=== PATIENT | female | born 1965 | race Caucasian/White ===

== ENCOUNTER 2019-04-13 01:54 | Emergency (ER) | payer SELFPAY ==
[~2019-04-13] VITALS: Ht 167.6 cm; Wt 55.0 kg
[2019-04-13 01:57] VITALS: Ht 167.6 cm; Wt 55.0 kg
[2019-04-13] MEDS ORDERED: SOD CHLORIDE 0.9% 1,000 ML IV STA (01:57)
[2019-04-13] MEDS ORDERED: HALOPERIDOL 5 MG INJ IM STA (01:57)
[2019-04-13] MEDS ORDERED: DIPHENHYDRAMINE 50 MG INJ IM ONE (02:00)
[2019-04-13] MEDS ORDERED: LORAZEPAM 2 MG INJ IM ONE (02:00)
--- NOTE | 2019-04-13 04:32 | ERD ---
ER Documentation Chief Complaint Chief Complaint bib ra /pd from street for drug use HPI This a 54-year-old female who presents from EMS and police escort after she was found outside yelling. Patient is found sitting in bed handcuffed to the bed yelling "gone, gone, gone, gone, gone, gone". Remainder of HPI is extremely limited. The patient is agitated, aggressive and a danger to herself and others. ROS Limited as documented above Medications Home Meds Unable to Obtain Active Prescriptions or Reported Meds Allergies Allergies: Coded Allergies: No Known Allergy (Unverified , 04/13/19) PMhx/Soc Hx Substance Use: No (unable to assess) Hx Tobacco Use: No (unable to assess) Smoking Status: Unknown if ever smoked Physical Exam Vitals Vital Signs Date Temp Pulse Resp B/P (MAP) Pulse Ox O2 O2 Flow FiO2 Time Delivery Rate 04/13/19 74 22 98/64 (75) 98 Room Air 06:01 04/13/19 91 20 95/63 (74) 99 Room Air 04:45 04/13/19 98.2 83 16 97/65 (76) 100 03:15 04/13/19 98.1 80 16 94/63 (73) 100 03:00 04/13/19 98.0 98 16 130/62 100 02:45 (84) 04/13/19 98.3 109 16 111/75 100 02:30 (87) 04/13/19 98.1 110 16 110/70 100 02:15 (83) 04/13/19 98.8 106 19 109/65 100 01:57 (80) Physical Exam General: Disheveled, yelling and screaming Head: Normocephalic, atraumatic. Eyes: Pupils equally reactive, EOM intact ENT: Moist mucous membranes Neck: Supple, no lymphadenopathy Respiratory: Lungs clear bilaterally, no distress Cardiovascular: Tachycardia, no murmurs, rubs, or gallops Abdominal: Soft, non-tender, non-distended, no peritoneal signs : Deferred MSK: No edema, no unilateral swelling, 5/5 strength Neurologic: Agitated, limited exam Skin: No rash Psych: Extreme agitation Result Diagram: 04/13/19 0436 04/13/19 0436 Results 24 hrs Laboratory Tests Test 04/13/19 04:36 White Blood Count 7.4 10^3/ul Red Blood Count 4.13 10^6/ul Hemoglobin 12.0 g/dl Hematocrit 36.6 % Mean Corpuscular Volume 88.6 fl Mean Corpuscular Hemoglobin 29.1 pg Mean Corpuscular Hemoglobin Concent 32.8 g/dl Red Cell Distribution Width 15.0 % Platelet Count 339 10^3/UL Mean Platelet Volume 8.7 fl Immature Granulocytes % 0.300 % Neutrophils % 71.8 % Lymphocytes % 16.8 % Monocytes % 9.9 % Eosinophils % 0.4 % Basophils % 0.8 % Nucleated Red Blood Cells % 0.0 /100WBC Immature Granulocytes # 0.020 10^3/ul Neutrophils # 5.3 10^3/ul Lymphocytes # 1.2 10^3/ul Monocytes # 0.7 10^3/ul Eosinophils # 0.0 10^3/ul Basophils # 0.1 10^3/ul Nucleated Red Blood Cells # 0.0 10^3/ul Urine Color LAURA Urine Clarity SLIGHTLY CLOUDY Urine pH 5.0 Urine Specific Garrett 1.026 Urine Ketones 1+ mg/dL Urine Nitrite NEGATIVE mg/dL Urine Bilirubin NEGATIVE mg/dL Urine Urobilinogen 1+ mg/dL Urine Leukocyte Esterase TRACE Sachin/ul Urine Microscopic RBC 9 /HPF Urine Microscopic WBC 4 /HPF Urine Squamous Epithelial Cells FEW /HPF Urine Bacteria FEW /HPF Urine Mucus MANY /HPF Urine Hemoglobin NEGATIVE mg/dL Urine Glucose NEGATIVE mg/dL Urine Total Protein 2+ mg/dl Sodium Level 144 mmol/L Potassium Level 4.6 mmol/L Chloride Level 108 mmol/L Carbon Dioxide Level 29 mmol/L Anion Gap 7 Blood Urea Nitrogen 19 mg/dl Creatinine 0.65 mg/dl Est Glomerular Filtrat Rate mL/min > 60 mL/min Glucose Level 105 mg/dl Calcium Level 9.9 mg/dl Total Bilirubin 0.6 mg/dl Direct Bilirubin 0.00 mg/dl Indirect Bilirubin 0.6 mg/dl Aspartate Amino Transf (AST/SGOT) 36 IU/L Alanine Aminotransferase (ALT/SGPT) 21 IU/L Alkaline Phosphatase 62 IU/L Total Protein 8.0 g/dl Albumin 4.4 g/dl Globulin 3.60 g/dl Albumin/Globulin Ratio 1.22 Salicylates Level < 1.0 mg/dl Urine Opiates Screen Negative Acetaminophen Level < 10.0 ug/ml Urine Barbiturates Negative Urine Amphetamines Screen POSITIVE Urine Benzodiazepines Screen Negative Urine Cocaine Screen Negative Urine Cannabinoids Negative Ethyl Alcohol Level < 10.0 mg/dl Current Medications Medications Dose Sig/Doreen Start Time Status Last (Trade) Ordered Route PRN Stop Time Admin Dose Reason Admin Sodium 1,000 ml @ Q1H STAT 04/13/19 DC 04/13/19 Chloride 1,000 mls/hr IV 01:57 04:44 04/13/19 02:56 Haloperidol 5 mg ONCE STAT 04/13/19 DC 04/13/19 (Haldol) IM 01:57 02:10 04/13/19 02:00 Lorazepam 2 mg ONCE ONCE 04/13/19 DC 04/13/19 (Ativan) IM 02:00 02:10 04/13/19 02:01 50 mg ONCE ONCE 04/13/19 DC 04/13/19 Diphenhydrami IM 02:00 02:10 ne HCl 04/13/19 02:01 (Benadryl) Procedures/MDM EKG/DIAGNOSTIC IMAGING: CT brain: No acute process LAB INTERPRETATION: [facility] MEDICAL DECISION MAKING: The patient's presentation is consistent with underlying psychiatric illness and likely exacerbation of this illness and/or psychosis. I have a much lower clinical concern for delirium or acute organic pathology such as toxicologic, metabolic, ischemic, intracranial hemorrhage, infectious process. However, we must rule this out prior to relying a diagnosis of underlying psychiatric illness. The patient's workup will include medical screening examination and appropriate laboratory testing. If the patient's medical examination does not reveal acute organic pathology the patient will be medically cleared for psychiatric evaluation. ER COURSE: * The patient required Haldol Ativan and Benadryl given extreme agitation. Four-point restraints applied. * Restrains: Indication: extreme agitation Location: 4 point restraints to bilateral upper and lower extremities The patient was given verbal warnings that if the behavior continued the patient would require physical and/or chemical restraints. Despite verbal warnings the behavior continued and restraints were applied. The patient had a bedside reevaluation within 50 minutes of placement of restraints. Patient remained stable. * The patient's evaluation does not suggest an acute organic pathology. At this time I believe the patient's presentation is very consistent with underlying psychiatric illness. The patient is medically cleared for psychiatric evaluation. CONSULTATION: Psychiatric consultation: Telemetry medicine psychiatry has been consulted on this case to evaluate the patient for possible acute psychiatric illness that would require inpatient hospitalization. DISPOSITION PLAN: Pending sobriety and psychiatric evaluation Departure Diagnosis: Primary Impression: Acute psychosis Additional Impression: Methamphetamine abuse Condition: Stable BRUCE [facility] MD Apr 13, 2019 04:32
[2019-04-13 07:50] VITALS: BP 108/75; PULSE 72; RESP 22
== END 2019-04-13 10:35 | disposition home or self-care (01) ==
LOC: EDBD 01:54 → E/R 01:54
DX: F23 Brief psychotic disorder (principal); F15.10 Other stimulant abuse, uncomplicated; R40.2142 Coma scale, eyes open, spontaneous, at arrival to emergency department; R40.2252 Coma scale, best verbal response, oriented, at arrival to emergency department; R93.0 Abnormal findings on diagnostic imaging of skull and head, not elsewhere classified
CPT/HCPCS: 70450; 80053; 80307; 81001; 85025; J1200; J1630; J2060; J7030; 36415; 96372